=== PATIENT | female | born 1990 | race Caucasian/White ===

== ENCOUNTER 2018-09-18 07:51 | Outpatient (CLI) | payer OTHER ==
--- NOTE | 2018-09-18 08:46 | ULT ---
PELVIC ULTRASOUND: History: Irregular periods. FINDINGS: Real-time imaging of the pelvis was obtained transabdominally as well as with an endovaginal probe. T his shows a normal appearing uterus that measures 7.2 cm in length. The endometrium is 4 mm. 1.5 cm cyst is seen involving the right ovary. There are multiple small follicles involving the left ovary. DOPPLER EVALUATION WITH SPECTRAL ANALYSIS: Normal flow is show to both adnexa. No free fluid. IMPRESSION: Unremarkable pelvic ultrasound. POS: [facility]
== END 2018-09-18 07:52 | disposition home or self-care (01) ==
LOC: BICULT 07:51
PROVIDERS: ATTEND Family Medicine
DX: N92.6 Irregular menstruation, unspecified (principal)
CPT/HCPCS: 76856